=== PATIENT | male | born 1985 | race Hispanic/Latino ===

== ENCOUNTER 2018-01-11 03:58 | Emergency (ER) | payer OTHER ==
[~2018-01-11] VITALS: Ht 165.1 cm; Wt 77.1 kg
[2018-01-11] MEDS ORDERED: IOPAMIDOL 300MG/ML 100 ML INFUS..BTL IV ONE (04:30)
[2018-01-11] MEDS ORDERED: SODIUM CHLORIDE 0.9% 1000ML 500 ML IV ONE (05:15)
[2018-01-11] MEDS ORDERED: HYDROCODONE/APAP 5MG-325MG TAB PO ONE (05:15)
[2018-01-11 07:26] VITALS: BP 130/68
== END 2018-01-11 07:26 | disposition home or self-care (01) ==
LOC: FSED 03:58
DX: R10.9 Unspecified abdominal pain (principal); K27.9 Peptic ulcer, site unspecified, unspecified as acute or chronic, without hemorrhage or perforation; F17.210 Nicotine dependence, cigarettes, uncomplicated
CPT/HCPCS: 74177; 80053; 85025; 99284; J7030; Q9967